=== PATIENT | female | born 1985 | race Caucasian/White ===

== ENCOUNTER 2020-03-03 21:53 | Emergency (ER) | payer MEDICAID ==
[~2020-03-03] VITALS: Ht 167.6 cm; Wt 61.2 kg
[2020-03-03 22:03] VITALS: Ht 167.6 cm; Wt 61.2 kg
[2020-03-03 22:32] LABS: PLATELET COUNT 199 x10^3mcL (130-400); RED CELL DISTRIBUTION WIDTH 13.2 % (11.5-14.5)
[2020-03-03 22:33] LABS: BASOPHIL % 0 % (0-2)
[2020-03-03 22:38] LABS: CALCIUM 9.3 mg/dL (8.5-10.1); CARBON DIOXIDE 27.2 mmol/L (21-32); CHLORIDE SERUM 105 mmol/L (98-107); GFR1 > 60 mL/min; GLUCOSE SERUM 94 mg/dL (74-106); POTASSIUM SERUM 3.3 mmol/L (3.5-5.1); SODIUM SERUM 142 mmol/L (136-145)
[2020-03-03 22:44] LABS: ALKALINE PHOSPHATASE 63 U/L (46-116); ALT/SGPT 19 U/L (14-59); AST/SGOT 11 U/L (15-37); BILIRUBIN TOTAL 0.52 mg/dL (0.20-1.00); TOTAL PROTEIN, SERUM 7.5 g/dL (6.4-8.2)
[2020-03-03 23:33] LABS: AMPHETAMINE QUAL UR POSITIVE (See below)
[2020-03-03 23:51] VITALS: BP 116/72
== END 2020-03-03 23:52 ==
LOC: ED 21:53
PROVIDERS: Emergency Medicine
DX: R45.1 Restlessness and agitation (principal)
CPT/HCPCS: 36415; G0480; J1200; J1630